=== PATIENT | female | born 1950 | race Caucasian/White ===

== ENCOUNTER 2024-11-07 05:52 | Day surgery (SDC) | payer MEDICARE, OTHER, SELFPAY ==
[2024-10-28 10:59] VITALS: BMI 25.9
[2024-11-07] VITALS (19 sets, daily range): BP systolic 101–135; BP diastolic 55–95; BMI 24.8
[2024-11-07] MEDS: TYLENOL 1000 MG PO (07:04)
[2024-11-07 09:06] LABS: ACT-LR - POC 347 Seconds (116-155)
--- NOTE | 2024-11-07 09:22 | ITS.CL.ABL ---
[employer] - Ablation
Ablation
Procedure Report:
ELECTROPHYSIOLOGY ABLATION STUDY
DATE:: November 07, 2024�����������������������������REFERRING: Dr. Carey Marvin
INDICATION: Paroxysmal supraventricular tachycardia in the form of atrial fibrillation.��Prior pulmonary vein isolation with a 28 mm cryoballoon PVI only
HISTORY: See H and P.��History of right carotid occlusion, history of left CEA, history of multiple TIA on lifelong oral anticoagulation
ANTIARRHYTHMIC DRUG: Metoprolol
PRE-PROCEDURE MERRITT: No atrial thrombus
PRESENTING RHYTHM: Sinus rhythm
'TIME-OUT':��called and confirmed.
SEDATION/ANESTHESIA:��provided via the anesthesia department using general anesthesia (LMA).
INTRAVENOUS/ARTERIAL ACCESS:
Right femoral venous - 8Fr
Left femoral venous - 8 Fr, 6 Fr
Ultrasound guidance for bilateral femoral vein access was utilized by me to obtain access with demonstration of normal anatomy
CHADS-VASC Score:
HAS-Bled Score
PROCEDURE:
1.��A decapolar CS catheter was placed within the CS for mapping and pacing.��This was also used as the reference catheter for the 3-D map.
2. The intracardiac ultrasound catheter was positioned in the RA to identify the FO for targeting of transseptal puncture, assist��in identification of the pulmonary vein ostia, monitoring pre and post ablation pulmonary vein flow velocities,
monitoring for 'bubble' formation during RF application as a sign of thermal injury,��and to monitor for pericardial effusion during mapping and ablation procedure.���Left atrial size, LV ejection fraction, and pulmonary vein flows were monitored
pre and post ablation procedure. The other valves were inspected and found to be free of significant regurgitation or stenosis.
3.��Half of the calculated heparin bolus was administered prior to the first transeptal puncture.��Transseptal puncture was performed to diagnose RA and LA pressure so that safety of LA mapping and ablation could be further assessed, and to access
the left atrium and pulmonary veins for mapping and ablation.��This entailed advancing an 16.8 Swiss sheath wire with dilator into the superior vena cava and withdrawing both (monitoring intracardiac ultrasound, fluoroscopy and tip pressure) with
the tip oriented toward the atrial septum.��The fossa ovalis was engaged (indicated by sudden displacement of the sheath tip as well as tenting of the fossa seen on intracardiac ultrasound).��Left atrial access required a pass with the [place]
needle extended.��Left atrial catheter position was confirmed by pressure monitoring (RA mean pressure 8 mm Hg and LA mean presure 14 mm Hg), LA saturation (99%),��as well as fluoroscopy.��The sheath was advanced over the dilator and positioned in
the left atrium.��This procedure was repeated for the Agilis sheath.��The remainder of the calculated heparin bolus was administered and heparin was
infused to maintain ACT at 300 -350 seconds throughout the case.
4.��RA pacing was performed via the proximal decapolar poles and LA pacing was performed via the distal decapolr poles.
5. A quadrapolar catheter was first positioned at the His position for His Bundle recording which was tagged via the 3-D Navex sytem, and then passed to the RVA for RV pacing and recording.
6. The multipolar catheter and the PFA catheter were placed in each of the LIPV, LSPV, RSPV and the RIPV.��The right pulmonary veins were isolated at baseline. The left efraín from both the left superior and left inferior aspects had a markedly
delayed potential greater than 300 ms post atrial activation at the efraín and distal efraín.
7.��Next, a 3-D map was created using Navex.���A 3-D reconstructed CT image was compared to the 3-D Navex map to assist in anatomic interpretation, mapping and ablation.��The CT image and the NavX image were fused.
8. Total of 32 lesions were given. All of and basket poses were given to the distal efraín of the left veins isolating both left veins. Flower lesions were given to the roof posterior wall and floor isolating the posterior wall roof and floor.
Additional flower lesions were given to the interatrial septum. Entrance and exit block was confirmed in all 4 pulmonary veins and post procedure EP study did not demonstrate any other inducible arrhythmia with atrial extrastimuli and burst atrial
pacing down to atrial refractoriness.
9. Normal sinus node and AV node function noted.
TOTAL FLOURO TIME: 11.7 minutes 112 mGy
TOTAL RF DURATION: 0 minutes
REVERSAL OF HEPARIN: 35 mg of protamine, slow IV administration
COMPLICATIONS:
None
Intracardiac US shows no pericardial effusion post ablation.
SUMMARY:��
Complex left atrial mapping and ablation.
Reisolation of the left veins and the left atrial posterior wall floor and roof with PFA as above.
RECOMMENDATIONS:
1. Ambulate 4 hours.
2. Resume anticoagulation
3.��Consider same-day discharge
4.��Maintain lifelong oral anticoagulation given prior TIA
Copy to: Dr. Carey Marvin
[2024-11-07] MEDS: ANESTHETIC LOZENGE 1 LOZENGE PO (13:36)
--- NOTE | 2024-11-07 13:57 | W.PN.UPDATE ---
Update Note
Progress Note Update
74 yo WF s/p PVI (same day) She denies cp, sob, mikel diet, voiding amb w/o dizziness, EKG SR, b/l groins c/d/i no HT, soft. She will resume Eliquis tonight and continue metoprolol. Activity restrictions reviewed. She will f/u Dr. Marvin in 2 mo. She
is for d/c home after 2pm.
== END 2024-11-07 14:00 | disposition home or self-care (01) ==
LOC: CATH 05:52
PROVIDERS: ATTENDING PHYSICIAN Internal Medicine Cardiovascular Disease; FAMILY PHYSICIAN Family Medicine
DX: I48.19 Other persistent atrial fibrillation (principal); E03.9 Hypothyroidism, unspecified; E78.5 Hyperlipidemia, unspecified; G47.33 Obstructive sleep apnea (adult) (pediatric); I10 Essential (primary) hypertension; I47.19 Other supraventricular tachycardia; J45.909 Unspecified asthma, uncomplicated; Z79.01 Long term (current) use of anticoagulants; Z79.899 Other long term (current) drug therapy; Z87.891 Personal history of nicotine dependence; Z86.73 Personal history of transient ischemic attack (TIA), and cerebral infarction without residual deficits; K22.70 Barrett's esophagus without dysplasia; Z79.82 Long term (current) use of aspirin; Z79.890 Hormone replacement therapy; Z88.1 Allergy status to other antibiotic agents; Z88.2 Allergy status to sulfonamides; R00.2 Palpitations; R53.1 Weakness; Z85.3 Personal history of malignant neoplasm of breast
CPT/HCPCS: C1732; C1894; C1759; 85347; 93005; 93656; 93657; C1733; C1766